=== PATIENT | female | born 1970 | race American Indian/Alaskan Native ===

== ENCOUNTER 2019-03-23 13:05 | Day surgery (SDC) | payer OTHER ==
[~2019-03-23 13:05] MED LIST: SODIUM CHLORIDE 0.9% 1000 ML 1,000 ML IV SCH
--- NOTE | 2019-03-23 13:38 | Anesthesia Consultation ---
Anesthesia Consult and Med Hx Date of service: 03/23/19 - Airway Anesthetic Teeth Evaluation: Good (braces) ROM Head & Neck: Adequate Mental/Hyoid Distance: Adequate Mallampati Class: Class II Intubation Access Assessment: Probably Good - Pre-Operative Health Status ASA Pre-Surgery Classification: ASA2 Proposed Anesthetic Plan: MAC - Pulmonary Hx Asthma: Yes Hx Sleep Apnea: Yes (does not use CPAP) - Central Nervous System Hx Psychiatric Problems: Yes (depression, PTSD) - Gastrointestinal Hx Gastroesophageal Reflux Disease: Yes - Endocrine Hx Thyroid Disease: Yes (Graves disease)
--- NOTE | 2019-03-23 13:40 | Anesthesia Day of Surgery ---
Anesthesia Day of Surgery - Day of Surgery Patient Examined: Yes Patient H&P Reviewed: Yes Patient is NPO: Yes
[2019-03-23] MEDS ORDERED: PROPOFOL 200 MG/20 ML VIAL IV ONE ×3 (14:21)
--- NOTE | 2019-03-23 14:58 | Procedure Note ---
Date of procedure: 03/23/19 Pre-op diagnosis: Abdominalpai/Dyspepsia/Changes in Bowel Habit/H/O Graves Disease Post-op diagnosis: other (Mild to Distal Erosive Esophaagitis/Gastric Erosion R/O Celica Disease/ R/O Eosinophilic Esophagitis/R/O Microscopic Colitis/R/O Ileitis/Minor,Internal Hemorrhoid) Procedure: EGD with Biopsy/Colonoscopy with Biopsy Anesthesia: GUILLERMO Surgeon: RODRIGUEZ MRASHALL Estimated blood loss: minimal Pathology: list Specimen disposition: to lab Condition: stable Disposition: same day (Treat with PPI and prn Bentyl and Linzess. Avoid aspirin and NSAID for 4; otherwise resume home medication and follow up in 1 to 2 weeks ([phone]).)
[2019-03-23] MEDS ORDERED: ONDANSETRON 4 MG/2 ML INJ IV ONE (15:15)
--- NOTE | 2019-03-23 15:25 | Operative Report ---
PROCEDURE: Esophagogastroduodenoscopy with biopsy. INDICATIONS: This is a 48-year-old -[place] female who has been having abdominal pain and dyspeptic symptoms. She has an underlying history of Graves' disease and a family history of cancer. The patient's grandmother had cancer. EGD was done to make sure there was not any significant upper GI pathology present that would account for her symptoms. DESCRIPTION OF PROCEDURE: Procedure was done after getting informed consent with MAC anesthesia. Instrument was passed through the hypopharynx into the esophagus, which showed mild to moderate distal erosive esophagitis. Biopsy was done from the midesophagus to rule out for eosinophilic esophagitis. The stomach showed antral erosion. Biopsy was done from the gastric antrum, gastric body and angular incisura to rule out for H. pylori and atrophic gastritis. The pylorus was patent. The duodenum in the first and the second portion appeared normal. Biopsy was done from the second part to rule out for possible celiac disease. There was minimal bleeding associated with the procedure. No complications associated with the procedure. ASSESSMENT: Abdominal pain, dyspepsia, history of Graves' disease, rule out eosinophilic esophagitis, mild to moderate erosive esophagitis, gastric erosion, gastritis, rule out celiac disease. Again, there was minimal bleeding associated with the procedure. No complications associated with the procedure. PLAN: To treat the patient with PPI, p.r.n. dose of Bentyl for any abdominal pain and to do a colonoscopy for further assessment. Further treatment adjustment will be according to the biopsy findings. Procedure was done in the GI lab with assistance of the GI lab team, which included the nurse RN, Sherry Ventura as well as Jennifer dennis and with assistance of anesthesia. A colonoscopy will also be done for further assessment of the patient's symptoms. JOB# [id number] ANILA/AUSTYN
[2019-03-23] MEDS ORDERED: LIDOCAINE MPF (2%) 20 MG/1 ML VIAL 5 ML ONE (15:30)
--- NOTE | 2019-03-23 15:36 | Operative Report ---
PROCEDURE: Colonoscopy with biopsy. INDICATIONS: This is a 48-year-old -[place] female with underlying history of Graves' disease, family history of cancer. EGD had shown presence of [id number] distal erosive esophagitis and some antral erosion. Colonoscopy was done to make sure there was not any significant lower GI pathology present. DESCRIPTION OF PROCEDURE: Procedure was done after getting informed consent with MAC anesthesia. Initial rectal exam was unremarkable. Instrument was passed through the rectum onto the cecum, which was identified with ileocecal valve and the appendiceal orifice. The terminal ileum was intubated showed normal mucosa. Biopsy was done to rule out for possible ileitis. Cecum, ascending colon, transverse colon, descending colon, and sigmoid likewise showed normal mucosa. There was no endoscopic evidence of any colitis. No evidence of any diverticular disease or polyps noted. Random biopsies were done throughout the colon to rule out for possible microscopic colitis and the rectum showed minor internal hemorrhoid on the retroverted view. There was minimal bleeding associated with the procedure. No complications associated with the procedure. ASSESSMENT: Abdominal pain, changes in bowel habit. Family history of cancer. The patient has an underlying history of Graves' disease, rule out microscopic colitis, rule out ileitis, minor internal hemorrhoid. PLAN: To treat the patient with p.r.n. dose of Bentyl and we will give the patient Linzess, samples of which I have been given and the patient will also be encouraged to take fiber supplements and follow up in the office in 1-2 weeks' time and to avoid aspirin and aspirin-related products for the next 4-5 days. Procedure was done in the GI lab with assistance of the GI lab team, which included Sherry WHELAN including Jennifer dennis and with assistance of anesthesia. JOB# [id number] ANILA/AUSTYN
[2019-03-23 15:46] VITALS: BP 143/71
--- NOTE | 2019-03-23 19:44 | Post Anesthesia Evaluation ---
- Post Anesthesia Evaluation Patient Participated: Yes Airway Patent: Yes Stable Respiratory Function: Yes Nausea/Vomiting: No Temp > 96.8F: Yes Pain Manageable: Yes Adequeate Hydration: Yes Anesthesia Complications: No Block Receding Appropriately: Not Applicable Patient on Ventilator: No
== END 2019-03-23 13:06 | disposition home or self-care (01) ==
LOC: GIO 13:05
DX: K52.9 Noninfective gastroenteritis and colitis, unspecified (principal); K21.0 Gastro-esophageal reflux disease with esophagitis; K31.89 Other diseases of stomach and duodenum; K63.89 Other specified diseases of intestine; K64.8 Other hemorrhoids; K29.70 Gastritis, unspecified, without bleeding; R10.9 Unspecified abdominal pain; R19.4 Change in bowel habit; J45.909 Unspecified asthma, uncomplicated; G47.30 Sleep apnea, unspecified; E03.9 Hypothyroidism, unspecified; F32.9 Major depressive disorder, single episode, unspecified; Z80.0 Family history of malignant neoplasm of digestive organs; Z79.899 Other long term (current) drug therapy; Z98.890 Other specified postprocedural states
CPT/HCPCS: 43239; 45380; 81025; 88305; 88342; J2405; J2704; J7030